=== PATIENT | male | born 1985 | race Caucasian/White ===

== ENCOUNTER 2018-04-04 18:31 | Emergency (ER) | payer SELFPAY ==
[~2018-04-04] VITALS: Ht 185.4 cm; Wt 129.3 kg
--- OUTSIDE RECORDS SUMMARY | 2018-04-04 19:00 | XMS REPORT | Continuity of Care Document ---
Author Author [facility] Address Unknown Phone Unavailable Allergies Active Description Code Type Severity Reaction Onset Reported/Identified Relationship to Patient Clinical Status Yes Penicillins Drug Allergy N/A N/A 10/17/2012 Medications There is no data. Problems Date Dx Coded Attending Type Code Diagnosis Diagnosed By 10/17/2012 300.00 ANXIETY UNSPEC 10/17/2012 521.00 UNSPECIFIED DENTAL CARIES 10/17/2012 789.07 ABDOMINAL PAIN GENERALIZED 10/17/2012 LORI VILLANUEVA DO 300.00 ANXIETY UNSPEC 10/17/2012 LORI VILLANUEVA DO 521.00 UNSPECIFIED DENTAL CARIES 10/17/2012 LORI VILLANUEVA DO 789.07 ABDOMINAL PAIN GENERALIZED 10/17/2012 ALBINO ZAMBRANO APRN 300.00 ANXIETY UNSPEC 10/17/2012 ALBINO ZAMBRANO APRN 521.00 UNSPECIFIED DENTAL CARIES 10/17/2012 ALBINO ZAMBRANO APRN 789.07 ABDOMINAL PAIN GENERALIZED 10/17/2013 ALBINO ZAMBRANO APRN 110.4 DERMATOPHYTOSIS OF FOOT 10/17/2013 ALBINO ZAMBRANO APRN 789.09 ABDOMINAL PAIN OTHER SPECIFIED SITE Procedures Code [place] [address] ROUTINE VENIPUNCTURE 10/17/2012 76189 UA W/ CULTURE IF INDICATED 10/17/2012 47102 URINE DRUG SCREEN (IN-HOUSE ) 10/17/2012 42203 CBC 10/17/2012 60148 LIPID PANEL 10/17/2012 26095 CMP 10/17/2012 [id number] GFR CALC (RESULT ONLY) 10/17/2012 34706 LIPASE 10/17/2012 71171 UA LONG DIP 10/17/2013 80515 URINE DRUG SCREEN (IN-HOUSE ) 10/17/2013 Results There is no data. Encounters ACCT No. Visit Date/Time Discharge Status Pt. Type Provider Facility Loc./Unit Complaint [id number] 10/17/2013 10:53:00 10/17/2013 23:59:59 [facility] Outpatient ALBINO ZAMBRANO APRN [id number] 11/19/2012 13:21:00 11/19/2012 23:59:59 [facility] Outpatient LORI VILLANUEVA DO [id number] 10/17/2012 10:36:00 Document Registration [id number] 03/29/2018 08:00:00 03/29/2018 23:59:59 [facility] Outpatient [facility]
--- NOTE | 2018-04-04 19:28 | ED Lower Extremity ---
General Chief Complaint: Lower Extremity Stated Complaint: R ANKLE PAIN Nursing Triage Note: PT REPORTS HAVING FELL/TWISTING FOOT IN YARD LAST SUNDAY. PT WENT TO [facility] AND THEY TOOK X-RAYS AND DIAGNOSED HIM WITH ANKLE SPRAIN AND WOULD BE HEALED IN 5 DAYS. PT STILL UNABLE TO BEAR WEIGHT ON FOOT. FOOT IS VERY SWOLLEN AND BRUISED AROUND TOES. Nursing Sepsis Screen: No Definite Risk History of Present Illness Date Seen by Provider: Apr 04, 2018 Time Seen by Provider: 19:05 Onset: last week Pain/Injury Location: right knee, right foot, right ankle Method of Injury: fell Modifying Factors: Improves With Cold Therapy, Improves With Pain Medication ( ibuprofen) The patient is a very pleasant 32-year-old male presents for evaluation of right foot and ankle pain as well as some right knee pain. He states that last Sunday he stepped onto his yard and the ground was wetter than he was expecting and he twisted his foot and ankle on the right and fell to the ground further injuring his right knee. He went to a clinic where he had x-rays of the ankle performed and then they told him he had an ankle sprain and put a Aircast splint on and give him crutches to use. We told him he would likely be healed in 5 days and to not bear any weight on the foot. He presents to the emergency department this evening because he is unable to bear any weight on the foot and he was only given an excuse from work for a few days. He states the swelling and pain are worsening and he is now noticing bruising at the base of his toes. He is concerned that there is a more serious injury because he heard a snap or pop during the fall. He has been taking ibuprofen at home with little relief. He is alert and oriented 4, calm, and appears to be in no distress. His pain is primarily over the right lateral malleolus and also on the dorsal aspect of the foot at the base of the toes. Allergies and Home Medications Allergies Coded Allergies: No Known Drug Allergies (Unverified , 04/04/18) Patient Home Medication List Home Medication List Reviewed: No Review of Systems Constitutional: no symptoms reported EENTM: no symptoms reported Respiratory: no symptoms reported Cardiovascular: no symptoms reported Musculoskeletal: joint pain (right foot, ankle, and knee) Skin: other (right foot bruising) Psychiatric/Neurological: No Symptoms Reported All Other Systems Reviewed Negative Unless Noted: Yes Past Caujifs-Nvjdov-Aorlut Hx Patient Social History Alcohol Use: Denies Use Recreational Drug Use: Yes Drug of Choice: MARIJUANA Smoking Status: Current Everyday Smoker Recent Foreign Travel: No Contact w/Someone Who Travel: No Recent Infectious Disease Expo: No Recent Hopitalizations: No Physical Abuse: No Sexual Abuse: No Seasonal Allergies Seasonal Allergies: No Past Medical History Surgeries: No Respiratory: No Cardiac: No Neurological: No Genitourinary: No Gastrointestinal: Yes Gastroesophageal Reflux Musculoskeletal: No Endocrine: No HEENT: No Cancer: No Psychosocial: Yes Anxiety, Depression Integumentary: No Blood Disorders: No Physical Exam Vital Signs Vital Signs - First Documented 04/04/18 19:00 Temp 98.0 Pulse 117 Resp 16 B/P (MAP) 133/80 (97) Pulse Ox 98 Capillary Refill : Less Than 3 Seconds Height, Weight, BMI Height: 6'1.00" Weight: 285lbs. oz. 129.119432zp; BMI Method:Stated General Appearance: WD/WN, no apparent distress HEENT: PERRL/EOMI, normal ENT inspection Neck: non-tender, full range of motion, normal inspection Cardiovascular: normal peripheral pulses, regular rate, rhythm Respiratory: chest non-tender, lungs clear, normal breath sounds, no respiratory distress Knees: right knee normal range of motion, right knee no evidence of injury, right knee bone tenderness Ankles: right ankle bone tenderness, right ankle limited range of motion, right ankle soft tissue tenderness, right ankle swelling Feet: right foot ecchymosis, right foot limited range of motion, right foot soft tissue tenderness, right foot swelling Neurologic/Tendon: normal sensation, normal motor functions, normal tendon functions 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, alert, normal mood/affect, oriented x 3 Skin: warm/dry, ecchymosis (right distal dorsal foot) Progress/Results/Core Measures Results/Orders My Orders Orders - REMA OG DO Ankle 3 View Right (04/04/18 19:10) Foot 3 View Right (04/04/18 19:10) Knee 3 View Right (04/04/18 19:10) Ice: Apply To Affected Area (04/04/18 19:10) Hydrocodone/Apap 5/325 Tablet (Lortab 5 (04/04/18 19:45) Medications Given in ED Current Medications Medications Dose Ordered Sig/Yenny Route Start Time Stop Time Status Last Admin Dose Admin Acetaminophen/ Hydrocodone Bitart 1 tab ONCE ONCE PO 04/04/18 19:45 04/04/18 19:46 DC 04/04/18 20:32 1 TAB Vital Signs/I&O 04/04/18 04/04/18 19:00 20:32 Temp 98.0 98.0 Pulse 117 Resp 16 B/P (MAP) 133/80 (97) Pulse Ox 98 Blood Pressure Mean: 97 Progress Progress Note : Progress Note @2032 - Patient updated on unremarkable imaging. He'll be placed back in the Aircast ankle splint and will use his crutches and be non-weightbearing. He is to follow-up with orthopedics in the next 2-3 days. He has been excused from work until Sunday at which time standing will be limited and he must use his crutches and will be non-weightbearing on the right. The patient expresses verbal understanding and agreement with this plan. He is going home with a prescription for [place] 06/14/24 quantity 15. Advised patient to return for new or worsening symptoms. He is stable for discharge at this time. Diagnostic Imaging Diagonstic Imaging: Xray Comments xrays of right foot, ankle, and knee are negative for acute traumatic bony pathology Departure Impression Primary Impression: Right ankle injury Additional Impressions: Right foot injury Right knee injury Disposition: HOME, SELF-CARE Condition: Stable Departure-Patient Inst. Decision time for Depature: 20:33 Patient Instructions: Knee Sprain (DC) Scripts Hydrocodone Bit/Acetaminophen (Hydrocodone/Acetaminophen 5/325mg Tablet) 1 Tab Tab 1-2 EACH PO Q6H PRN for PAIN-MODERATE MDD 10, #15 TAB 0 Refills Prov: REMA OG DO 04/04/18 Work/School Note: Work Release Form Date Seen in the Emergency Department: Apr 04, 2018 Return to Work: Apr 08, 2018 Other Restrictions Listed Below: Must use crutches. No standing more than a few minutes. REMA OG DO Apr 04, 2018 19:28
[2018-04-04] MEDS ORDERED: HYDROcodone/APAP 5 MG/325 MG (LORTAB) TAB PO ONE (19:45)
--- NOTE | 2018-04-04 20:06 | Diagnostic Imaging Report ---
INDICATION: Pain after fall with swelling. Three views were obtained. FINDINGS: The alignment is normal. The plafonds and talar dome are intact. The ankle mortise is symmetric. There is soft tissue swelling. There is no fracture or dislocation. IMPRESSION: Soft tissue swelling, otherwise unremarkable. Dictated by: Dictated on workstation # [id number]
--- NOTE | 2018-04-04 20:06 | Diagnostic Imaging Report ---
INDICATION: Pain after fall. Three views were obtained. FINDINGS: The osseous alignment is normal. There is no acute fracture or dislocation. The soft tissues are unremarkable. IMPRESSION: No acute abnormality. Dictated by: Dictated on workstation # [id number]
--- NOTE | 2018-04-04 20:08 | Diagnostic Imaging Report ---
INDICATION: Pain and swelling. Three views were obtained. FINDINGS: The alignment is normal. There is no fracture or dislocation. Soft tissue swelling. IMPRESSION: Soft tissue swelling, however, no acute fracture or dislocation. Dictated by: Dictated on workstation # [id number]
[2018-04-04] MEDS ORDERED: ACHD5005 PO (20:41)
[2018-04-04 20:52] VITALS: BP 136/80
== END 2018-04-04 20:52 | disposition home or self-care (01) ==
LOC: ER FS 18:37
DX: S99.911A Unspecified injury of right ankle, initial encounter (principal); S89.91XA Unspecified injury of right lower leg, initial encounter; K21.9 Gastro-esophageal reflux disease without esophagitis; F41.9 Anxiety disorder, unspecified; F32.9 Major depressive disorder, single episode, unspecified; F12.10 Cannabis abuse, uncomplicated; X50.1XXA Overexertion from prolonged static or awkward postures, initial encounter; W18.39XA Other fall on same level, initial encounter; Y92.007 Garden or yard of unspecified non-institutional (private) residence as the place of occurrence of the external cause
CPT/HCPCS: 73562; 73610; 73630

== ENCOUNTER 2020-05-27 20:21 | Emergency (ER) | payer SELFPAY ==
[~2020-05-27] VITALS: Ht 185.5 cm; Wt 133.4 kg
[~2020-05-27 20:21] MED LIST: ACHD5005 PO
[2020-05-27 20:25] VITALS: BP 161/83
--- NOTE | 2020-05-27 20:52 | ED GI ---
General Chief Complaint: Abdominal/GI Problems Stated Complaint: ABD PAIN,V/D Source of Information: Patient History of Present Illness Date Seen by Provider: May 27, 2020 Time Seen by Provider: 20:23 Initial Comments 35-year-old male presenting with complaints of nausea, vomiting, diarrhea and abdominal cramping this afternoon and evening. He denies feeling dizzy or lightheaded. He has had temperature up to 100.7. He took Tylenol and that resolved his temperature. He has diabetes and has not taken his Metformin for the day yet. His urine is darker in color but no burning or pain with urination. He denies seeing any blood when he vomits or in his stool. He has diffuse crampy abdominal pain. 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 He states he would have gone to Urgent care or clinic but they were already closed. He does not feel that he is sick enough to warrant ED visit but knew he needed a note for work. Allergies and Home Medications Allergies Coded Allergies: No Known Drug Allergies (Unverified , 04/04/18) Home Medications Hydrocodone Bit/Acetaminophen 1 Tab Tab, 1-2 EACH PO Q6H PRN for PAIN-MODERATE Prescribed by: LENKA HODGSON on 04/04/182040 Patient Home Medication List Home Medication List Reviewed: Yes Review of Systems Review of Systems Constitutional: No chills, No diaphoresis, No dizziness; fever (100.7 F T max.), malaise EENTM: No Symptoms Reported Respiratory: No Symptoms Reported Cardiovascular: No Symptoms Reported; Denies Lightheadedness, Denies P alpitations, Denies Syncope Gastrointestinal: See HPI; Denies Abdomen Distended; Abdominal Pain (diffuse cramping pain); Denies Blood Streaked Stools; Diarrhea (x4 episodes); Denies Difficulty Swallowing; Nausea; Denies Rectal Bleeding; Vomiting Genitourinary: Denies Burning, Denies Discharge, Denies Hematuria; Other (dark colored urine) Musculoskeletal: other (generalized aching) Skin: No rash Psychiatric/Neurological: Denies Headache, Denies Numbness, Denies Paresthesia Endocrine: Denies Increased Hunger, Denies Increased Thrist Past Nnhsfrh-Pjvyfh-Hvntyy Hx Past Med/Social Hx: Reviewed Nursing Past Med/Soc Hx, Reviewed and Corrections made Patient Social History Drug of Choice: MARIJUANA Recent Hopitalizations: No Seasonal Allergies Seasonal Allergies: No Past Medical History Surgeries: No Respiratory: No Cardiac: Yes High Cholesterol, Hypertension Neurological: No Genitourinary: No Gastrointestinal: Yes Gastroesophageal Reflux Musculoskeletal: No Diabetes, Non-Insulin dep HEENT: No Cancer: No Psychosocial: Yes Anxiety, Depression Integumentary: No Blood Disorders: No Physical Exam Vital Signs Capillary Refill : Height/Weight/BMI Height: 6'1.00" Weight: 285lbs. oz. 129.467421rp; BMI Method:Stated General Appearance: no apparent distress, obese HEENT: PERRL/EOMI, pharynx normal Neck: supple Respiratory: chest non-tender, lungs clear, normal breath sounds, no respiratory distress, no accessory muscle use Cardiovascular: normal peripheral pulses, regular rate, rhythm Gastrointestinal: soft, no pulsatile mass, abnormal bowel sounds (hyperactive); No guarding, No rebound; tenderness (mild diffuse, but worse on lateral sides of abdomen) Rectal: deferred Extremities: normal range of motion, normal capillary refill Back: no CVA tenderness Neurologic/Psychiatric: alert, oriented x 3 Skin: normal color, warm/dry Images 1 - diffuse mild abdominal tenderness to palpation worse on lateral areas of each side. hyperactive bowel sounds. no guarding or rebound Progress/Results/Core Measures Results/Orders Lab Results Laboratory Tests Test 05/27/20 20:49 Range/Units Glucometer 87 70-110 MG/DL My Orders Orders - FRED LUX MD Rx-Ondansetron Po (Rx-Zofran Po) (05/27/20 21:00) Accucheck Stat ONCE (05/27/20 20:47) Medications Given in ED Current Medications Medications Dose Ordered Sig/Yenny Route Start Time Stop Time Status Last Admin Dose Admin Ondansetron HCl 4 mg Q6H PRN PO 05/27/20 21:00 05/27/20 20:58 4 MG Progress Progress Note : Progress Note Reviewed with patient that without doing further testing only acute offer was the work note and Zofran to try and help with his nausea or vomiting. Encourage fluids. Patient stated he did not want to bring up a large bill and felt like his symptoms were not that bad. He preferred to try the Zofran and fluids. He stated that if things got worse or he had more problems that he would return or seek medical care through the clinic or urgent care. Counseled on follow-up and return precautions. An Accu-Chek was done and his sugar was 87. As he had not had anything to eat that was good for a fasting sugar for him. With his nausea vomiting will send a 4 pack of Zofran with the patient to help but if he needed more than that for it would be best to have him reevaluated. Departure Impression Primary Impression: Nausea vomiting and diarrhea Additional Impression: Abdominal cramping Disposition: HOME, SELF-CARE Condition: Stable Departure-Patient Inst. Decision time for Depature: 20:50 Referrals: DEANGELO MISTRY APRN (PCP) Primary Care Physician NO,LOCAL PHYSICIAN (Family) Primary Care Physician Patient Instructions: Nausea and Vomiting, Adult ED, Diarrhea, Adult ED Add. Discharge Instructions: Stay well hydrated and use the dissolving zofran for nausea. Check back with clinic if not improving or if you have worsening symptoms see the clinic or return for further evaluation All discharge instructions reviewed with patient and/or family. Voiced understanding. Work/School Note: Work Release Form Date Seen in the Emergency Department: May 27, 2020 Return to Work: May 29, 2020 Restrictions: Return-No Vomiting(24hrs) FRED LUX MD May 27, 2020 20:52
[2020-05-27] MEDS ORDERED: RX-ONDANSETRON 4 MG ODT (ZOFRAN) PPK #4 PO PRN (21:00)
== END 2020-05-27 21:00 | disposition home or self-care (01) ==
LOC: EDUNIT# 20:21 → ER FS 20:22
DX: R11.2 Nausea with vomiting, unspecified (principal); R19.7 Diarrhea, unspecified; R10.84 Generalized abdominal pain; E66.9 Obesity, unspecified; E11.9 Type 2 diabetes mellitus without complications; Z68.45 Body mass index [BMI] 70 or greater, adult; Z79.84 Long term (current) use of oral hypoglycemic drugs
CPT/HCPCS: 82962

== ENCOUNTER 2020-12-29 06:37 | Emergency (ER) | payer SELFPAY ==
[~2020-12-29] VITALS: Ht 182.8 cm; Wt 129.2 kg
--- NOTE | 2020-12-29 07:07 | ED Chest Pain ---
General Chief Complaint: Chest Pain Stated Complaint: CHEST PAIN/SOA Nursing Triage Note: Pt ambulatory into ER this AM with complaint of chest pain that comes and goes since last night. Pt states that it feels like hes been shot in the back, but also that his spine is being ripped out. Pt states that when the pain isn't too bad its aa 5/10 and when at its worse its a 7/10. Pt states that he feels a little SOA with this. Vitals are stable, IV placed, and Provider notified. PT denies taking anything for pain at home. Denies N/V with the pain. Source: patient Exam Limitations: no limitations (CECI PHIPPS DO) History of Present Illness Date Seen by Provider: Dec 29, 2020 Time Seen by Provider: 06:50 Initial Comments Patient is a 35-year-old male with history of Graves' disease, panic disorder who presents with chest pressure intermittent since last night. Patient states he feels as though he had a typical panic attack last night, however his symptoms persisted this morning and his sensation of someone standing on top of his chest. Symptoms are nonexertional and occur at rest and last 5 to 10 minutes at a time. Pain are nonradiating. Although, he occasionally he reports burning pain of his left posterior thoracic region not associated with the chest pain. 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 Patient has smoker's chronic smoker's cough is in the process of quitting. No leg pain swelling. No fever chills. No other acute symptoms or complaints. Patient is compliant with his medications. Timing/Duration: intermittent, 12-24 hours Severity/Quality: other Location: other Radiation: other Activities at Onset: other Prior CP/Workup: other Modifying Factors: improves with other ASA po K[employer]ITTED GOODS SHAPER: No NTG SL K[employer]ITTED [employer] SHAPER: No Associated Symptoms: shortness of breath (CECI PHIPPS DO) Allergies and Home Medications Allergies Coded Allergies: No Known Drug Allergies (Unverified , 04/04/18) Patient Home Medication List Home Medication List Reviewed: Yes (CECI PHIPPS DO) Hydrocodone Bit/Acetaminophen (Lortab 5 Mg Tablet) 1 Tab Tab, 1-2 EACH PO Q6H PRN for PAIN-MODERATE Prescribed by: LENKA HODGSON on 04/04/182040 Review of Systems Review of Systems Constitutional: see HPI EENTM: See HPI Respiratory: See HPI Cardiovascular: See HPI Gastrointestinal: See HPI Genitourinary: See HPI Musculoskeletal: see HPI Skin: see HPI Psychiatric/Neurological: See HPI Endocrine: See HPI Hematologic/Lymphatic: See HPI (CECI PHIPPS DO) All Other Systems Reviewed Negative Unless Noted: Yes (CECI PHIPPS DO) Past Rwzcixy-Aujbpm-Jqbfqg Hx Patient Social History Tobacco Use?: Yes Tobacco type used: Cigarettes Smoking Status: Current Everyday Smoker Use of E-Cig and/or Vaping dev: No Substance use?: Yes Substance type: Marijuana Substance frequency: Couple times a week Alcohol Use?: No Pt feels they are or have been: No (CECI PHIPPS DO) Immunizations Up To Date Influenza Vaccine Up-to-Date: Yes; Up-to-Date Second COVID19 Vaccination Albin: May 02 COVID19 Vaccine Income Tax Preparer: Moderna (CECI PHIPPS DO) Seasonal Allergies Seasonal Allergies: No (CECI PHIPPS DO) Past Medical History Surgeries: No Respiratory: No Cardiac: Yes High Cholesterol, Hypertension Neurological: No Genitourinary: No Gastrointestinal: Yes Gastroesophageal Reflux Musculoskeletal: No Diabetes, Non-Insulin dep HEENT: No Cancer: No Psychosocial: Yes Anxiety, Depression Integumentary: No Blood Disorders: No (CECI PHIPPS DO) Physical Exam Vital Signs Vital Signs - First Documented 12/29/20 06:42 Temp 36.4 Pulse 74 Resp 24 B/P (MAP) 127/80 (96) Pulse Ox 96 O2 Delivery Room Air (FRED LUX MD) Vital Signs Capillary Refill : Less Than 3 Seconds (CECI PHIPPS DO) Height, Weight, BMI Height: 6'1.00" Weight: 285lbs. oz. 129.757738vv; 38.00 BMI Method:Stated General Appearance: No Apparent Distress, Anxious HEENT: PERRL/EOMI, TMs Normal, Normal ENT Inspection Neck: Normal Inspection, Non Tender, Supple Respiratory: Chest Non Tender, Lungs Clear, Normal Breath Sounds, No Accessory Muscle Use Cardiovascular: Regular Rate, Rhythm, No Edema, Normal Peripheral Pulses Gastrointestinal: Non Tender, Soft Extremity: Non Tender Neurologic/Psychiatric: Alert, Oriented x3, heart surgeon II-XII Norm as Tested (CECI PHIPPS DO) Focused Exam Sepsis Stage: Ruled Out (CECI PHIPPS DO) Progress/Results/Core Measures Results/Orders Lab Results Laboratory Tests Test 12/29/20 06:48 Range/Units White Blood Count 9.9 4.3-11.0 10^3/uL Red Blood Count 4.94 4.30-5.52 10^6/uL Hemoglobin 15.3 13.3-17.7 g/dL Hematocrit 46 40-54 % Mean Corpuscular Volume 93 80-99 fL Mean Corpuscular Hemoglobin 31 25-34 pg Mean Corpuscular Hemoglobin Concent 33 32-36 g/dL Red Cell Distribution Width 13.6 10.0-14.5 % Platelet Count 212 130-400 10^3/uL Mean Platelet Volume 11.0 9.0-12.2 fL Immature Granulocyte % (Auto) 0 % Neutrophils (%) (Auto) 68 42-75 % Lymphocytes (%) (Auto) 20 12-44 % Monocytes (%) (Auto) 5 0-12 % Eosinophils (%) (Auto) 6 0-10 % Basophils (%) (Auto) 1 0-10 % Neutrophils # (Auto) 6.8 1.8-7.8 X 10^3 Lymphocytes # (Auto) 2.0 1.0-4.0 X 10^3 Monocytes # (Auto) 0.5 0.0-1.0 X 10^3 Eosinophils # (Auto) 0.6 H 0.0-0.3 10^3/uL Basophils # (Auto) 0.1 0.0-0.1 10^3/uL Immature Granulocyte # (Auto) 0.0 0.0-0.1 10^3/uL Sodium Level 139 135-145 MMOL/L Potassium Level 4.3 3.6-5.0 MMOL/L Chloride Level 104 98-107 MMOL/L Carbon Dioxide Level 24 21-32 MMOL/L Anion Gap 11 5-14 MMOL/L Blood Urea Nitrogen 16 7-18 MG/DL Creatinine 1.10 0.60-1.30 MG/DL Estimat Glomerular Filtration Rate 76 BUN/Creatinine Ratio 15 Glucose Level 162 H 70-105 MG/DL Calcium Level 9.6 8.5-10.1 MG/DL Corrected Calcium 8.5-10.1 MG/DL Total Bilirubin 0.2 0.1-1.0 MG/DL Aspartate Amino Transf (AST/SGOT) 13 5-34 U/L Alanine Aminotransferase (ALT/SGPT) 12 0-55 U/L Alkaline Phosphatase 90 40-136 U/L Troponin I < 0.30 <0.30 NG/ML Total Protein 7.4 6.4-8.2 GM/DL Albumin 4.6 H 3.2-4.5 GM/DL (FRED LUX MD) My Orders Orders - FRED LUX MD Ekg Tracing (12/29/20 07:55) (FRED LUX MD) Vital Signs/I&O 12/29/20 12/29/20 06:42 08:13 Temp 36.4 Pulse 74 50 Resp 24 16 B/P (MAP) 127/80 (96) 120/78 Pulse Ox 96 96 O2 Delivery Room Air Room Air (FRED LUX MD) Blood Pressure Mean: 96 Progress Progress Note #1: Time: 07:39 Progress Note I assumed care of patient from Dr. Phipps at shift change. Patient was waiting on labs but felt that his pressure in chest might be more related to anxiety and stress related to his job as emergency department manager at [employer]. CXR did not show any acute process. ECG was sinus rhythm without ectopy or ST elevation. Labs all appeared stable without elevation of troponin after intermittent chest pressure overnight. His glucose was 176. Will check with patient about his symptoms and determine disposition. Progress Note #2: Progress Note When discussing results with the patient he mentioned that he has been having intermittent sharp pains to mid back on the left side. When he has the pain it is sharp in nature and feels like he is being cut in half. He reports it can last up to 1-2 hours at a time and has no specific trigger or alleviating factor. He has thought it might be his kidney, heart, pinched nerve in his back, or related to his thyroid disease. He does have family history in several family members with cardiac disease and diabetes so he was concerned because they started having trouble around the age of 35 and he is now 35 as well. He has no risk factors for PE as he has no recent surgery, prolonged travel, family hx of clots, personal hx of clots. No leg swelling or calf pain. Advised that if he continues to have pain that at least cardiology consult or stress test with his family history would be helpful but he may also need a CT scan of chest to check for PE or Aorta issue. Could be kidney issue but he states they told him his urine was clear on Sunday after having pain all week the week previous up through Sunday before having UA and blood work on Sunday. Pt voiced understanding and was relieved his tests did not show a heart attack but understands it does not mean he does not have narrowing of arteries or plaque build up in arteries as that would require a stress test or heart cath to help show that. Sent with work note for today as he missed work and counseled on follow up and return precautions (FRED LUX MD) Initial ECG Impression Date: Dec 29, 2020 Initial ECG Impression Time: 06:38 Initial ECG Rate: 71 Initial ECG Rhythm: Normal Sinus Initial ECG Comparisson: No Previous ECG Available Comment Normal sinus rhythm with a heart rate of 71 bpm. VT interval [address] elevation. QT interval 372 ms with a QTc interval 405 ms. There is no previous tracing available for comparison. (FRED LUX MD) Diagnostic Imaging Diagonstic Imaging: Xray Plain Films/CT/US/NM/MRI: chest Comments [facility]. [place], [place] NAME: ELZBIETA KING [facility] REC#: [id number] PT STATUS: REG ER : 1985 PHYSICIAN: CECI PHIPPS DO ADMIT DATE: 12/29/20/ER FS Draft Date of Exam:12/29/20 CHEST 1 VIEW AP/PA ONLY Indication: Chest pain. FINDINGS: Portable exam. The lungs are well-aerated and clear. The heart is not enlarged. No pulmonary edema. No pneumothorax or pleural effusion. No bony abnormalities. IMPRESSION: Negative portable chest. Dictated on workstation # [id number] Dict: 12/29/20 0702 Trans: 12/29/20 0705 [facility] [id number] Interpreted by: SABAS BENITEZ MD Electronically signed by: Reviewed: Reviewed by Me (FRED LUX MD) Transfer of Care Time: 07:12 Care transferred to: Dr. Lux. (CECI PHIPPS DO) Departure Communication (Admissions) Chest x-ray: No acute cardiopulmonary disease Atypical chest pain with history of anxiety and panic disorder. Work-up in progress. Care transition to Dr. Lux at 07:10 (CECI PHIPPS DO) Impression Primary Impression: Chest pain Qualified Codes: R07.9 - Chest pain, unspecified Additional Impressions: Mid back pain on left side Family history of heart disease Disposition: HOME, SELF-CARE Condition: Stable Departure-Patient Inst. Decision time for Depature: 08:10 (FRED LUX MD) Referrals: DEANGELO MISTRY APRN (PCP) Primary Care Physician NO,LOCAL PHYSICIAN (Family) Primary Care Physician [facility] Patient Instructions: Upper Back Pain ED, Chest Pain, Adult ED Add. Discharge Instructions: Your blood work, Electrocardiogram and chest xray all had looked ok today without signs of a heart attack. If you continue to have pains or have worsening symptoms then you could certainly return for further evaluation. Check with your provider about cardiology consult or stress test based on your family history of heart disease and you having diabetes and thyroid disease. All discharge instructions reviewed with patient and/or family. Voiced understanding. Work/School Note: Work Release Form Date Seen in the Emergency Department: Dec 29, 2020 Return to Work: Dec 30, 2020 Restrictions: No Restrictions CECI PHIPPS DO Dec 29, 2020 07:07 FRED LUX MD Dec 29, 2020 07:42
[2020-12-29 07:20] LABS: HEMATOCRIT 46 % (40-54); HEMOGLOBIN 15.3 g/dL (13.3-17.7); MEAN CORPUSCULAR HEMOGLOBIN 31 pg (25-34); MEAN CORPUSCULAR HGB CONC 33 g/dL (32-36); MEAN CORPUSCULAR VOLUME 93 fL (80-99); PLATELET COUNT 212 10^3/uL (130-400); WHITE BLOOD COUNT 9.9 10^3/uL (4.3-11.0)
[2020-12-29 07:21] LABS: BASOPHILS # (AUTO) 0.1 10^3/uL (0.0-0.1); BASOPHILS % (AUTO) 1 % (0-10); EOSINOPHILS # (AUTO) 0.6 10^3/uL (0.0-0.3); EOSINOPHILS % (AUTO) 6 % (0-10); LYMPHOCYTES % (AUTO) 20 % (12-44); MONOCYTES # (AUTO) 0.5 X 10^3 (0.0-1.0); MONOCYTES % (AUTO) 5 % (0-12); NEUTROPHILS # (AUTO) 6.8 X 10^3 (1.8-7.8); NEUTROPHILS % (AUTO) 68 % (42-75)
[2020-12-29 07:34] LABS: ALANINE AMINOTRANSFERASE 12 U/L (0-55); ALBUMIN 4.6 GM/DL (3.2-4.5); ALKALINE PHOSPHATASE 90 U/L (40-136); BILIRUBIN,TOTAL 0.2 MG/DL (0.1-1.0); BUN/CREATININE RATIO 15; CALCIUM 9.6 MG/DL (8.5-10.1); CARBON DIOXIDE 24 MMOL/L (21-32); CHLORIDE 104 MMOL/L (98-107); GFR ESTIMATED 76; GLUCOSE 162 MG/DL (70-105); POTASSIUM 4.3 MMOL/L (3.6-5.0); SODIUM 139 MMOL/L (135-145); TOTAL PROTEIN 7.4 GM/DL (6.4-8.2)
[2020-12-29 08:13] VITALS: BP 120/78
== END 2020-12-29 08:15 | disposition home or self-care (01) ==
LOC: EDUNIT# 06:37 → ER FS 06:40
DX: R07.9 Chest pain, unspecified (principal); M54.6 Pain in thoracic spine; I10 Essential (primary) hypertension; E11.9 Type 2 diabetes mellitus without complications; E05.00 Thyrotoxicosis with diffuse goiter without thyrotoxic crisis or storm; F17.210 Nicotine dependence, cigarettes, uncomplicated; Z82.49 Family history of ischemic heart disease and other diseases of the circulatory system
CPT/HCPCS: 36415; 71045; 80053; 84484; 85025; 93005

== ENCOUNTER 2021-08-03 16:42 | Emergency (ER) | payer OTHER ==
[~2021-08-03] VITALS: Ht 180 cm; Wt 136.5 kg
[2021-08-03 17:00] LABS: BILIRUBIN,URINE NEGATIVE (NEGATIVE); CLARITY,URINE CLEAR; COLOR,URINE YELLOW; GLUCOSE, URINE (UA) NEGATIVE (NEGATIVE); KETONES,URINE NEGATIVE (NEGATIVE); LEUKOCYTE ESTERASE ,URINE NEGATIVE (NEGATIVE); NITRITE,URINE NEGATIVE (NEGATIVE); PROTEIN,URINE NEGATIVE (NEGATIVE)
[2021-08-03 17:05] LABS: BACTERIA,URINE NEGATIVE /HPF; SQUAMOUS EPITHELIAL CELL,UR RARE /HPF; WBC,URINE RARE /HPF
[2021-08-03 17:10] LABS: AMPHETAMINE SCREEN, URINE NEGATIVE (NEGATIVE); BARBITURATE SCREEN URINE NEGATIVE (NEGATIVE); BENZODIAZEPINES SCREEN URINE POSITIVE (NEGATIVE); CANNABINOID SCREEN, URINE POSITIVE (NEGATIVE); COCAINE SCREEN URINE NEGATIVE (NEGATIVE); METHADONE STAT NEGATIVE (NEGATIVE); OPIATE SCREEN URINE NEGATIVE (NEGATIVE); OXYCODONE STAT NEGATIVE (NEGATIVE); PROPOXYPHENE STAT NEGATIVE (NEGATIVE); TRICYCLIC ANTIDEPRESSANTS SCRE NEGATIVE (NEGATIVE)
--- NOTE | 2021-08-03 17:17 | ED Psychosocial ---
General Chief Complaint: Psych/Social Disorder Stated Complaint: MENTAL HEALTH ISSUES Nursing Triage Note: Patient has ambulated to ER with cc of "not feeling myself". He seems rather vague, but reports that his job has been causing a lot of stress. He reports wanting to talk to someone. He states that he is wanting to get some time off of work. He did reports that he felt stressed this afternoon and he did go home and vomit. He reports feeling this way for the last 2 weeks. Source: patient History of Present Illness Date Seen by Provider: Aug 03, 2021 Time Seen by Provider: 16:44 Initial Comments 36-year-old male presenting with complaints of disassociation and not feeling like himself. He feels like the stress from his work is making him "crazy". He had a panic attack today and ended up vomiting after that. He had tried to go to [facility] to speak to a therapist about these issues and see if maybe they could help him get some time off work to try and figure things out. However when he checked and they told him he had to come here to the emergency department. He denies being suicidal currently he states that he is worried that it would get so that if he does not get some help. He denies taking anything or trying to hurt himself prior to arrival. Severity: moderate Associated Symptoms: anxiety, impaired concentration, other (Dissociation and anxiety) Allergies and Home Medications Allergies Coded Allergies: No Known Drug Allergies (Unverified , 04/04/18) Patient Home Medication List Home Medication List Reviewed: Yes Hydrocodone Bit/Acetaminophen (Lortab 5 Mg Tablet) 1 Tab Tab, 1-2 EACH PO Q6H PRN for PAIN-MODERATE Prescribed by: LENKA HODGSON on 04/04/182040 Review of Systems Constitutional: No chills, No fever EENTM: no symptoms reported Respiratory: no symptoms reported Cardiovascular: no symptoms reported Gastrointestinal: no symptoms reported Genitourinary: no symptoms reported Musculoskeletal: no symptoms reported Skin: no symptoms reported Psychiatric/Neurological: Anxiety, Depressed, Emotional Problems Past Jbqhbps-Hqczon-Yybgfo Hx Patient Social History Tobacco Use?: Yes Tobacco type used: Cigarettes Use of E-Cig and/or Vaping dev: No Substance use?: Yes Substance type: Marijuana Alcohol Use?: No Immunizations Up To Date Second COVID19 Vaccination Albin: May 02 Seasonal Allergies Seasonal Allergies: No Past Medical History Surgeries: No Respiratory: No Cardiac: Yes High Cholesterol, Hypertension Neurological: No Genitourinary: No Gastrointestinal: Yes Gastroesophageal Reflux Musculoskeletal: No Diabetes, Non-Insulin dep HEENT: No Cancer: No Psychosocial: Yes Anxiety, Depression Integumentary: No Blood Disorders: No Physical Exam Vital Signs - First Documented 08/03/21 17:00 Temp 36.7 Pulse 107 Resp 16 B/P (MAP) 148/99 (115) Pulse Ox 98 Capillary Refill : Height, Weight, BMI Height: 6'1.00" Weight: 285lbs. oz. 129.382990wp; 42.00 BMI Method:Stated General Appearance: WD/WN, obese HEENT: PERRL/EOMI, pharynx normal Neck: non-tender, full range of motion, supple, normal inspection Respiratory: chest non-tender, lungs clear, normal breath sounds, no respiratory distress, no accessory muscle use Cardiovascular: normal peripheral pulses, regular rate, rhythm Gastrointestinal: normal bowel sounds, non tender, soft, no pulsatile mass Extremities: normal range of motion, non-tender, normal capillary refill Neurologic/Psychiatric: carrier operator II-XII nml as tested, alert, oriented x 3, depressed affect Appearance/Memory: appropriate appearance, neat Behavior/Eye Contact: cooperative, good eye contact, normal speech Thoughts/Hallucinations: normal thought pattern Skin: normal color, warm/dry Progress/Results/Core Measures Results/Orders Lab Results Laboratory Tests Test 08/03/21 16:48 08/03/21 17:05 08/03/21 17:20 Range/Units Urine Color YELLOW Urine Clarity CLEAR Urine pH 7.0 5-9 Urine Specific [place] 1.015 L 1.016-1.022 Urine Protein NEGATIVE NEGATIVE Urine Glucose (UA) NEGATIVE NEGATIVE Urine Ketones NEGATIVE NEGATIVE Urine Nitrite NEGATIVE NEGATIVE Urine Bilirubin NEGATIVE NEGATIVE Urine Urobilinogen 0.2 < = 1.0 MG/DL Urine Leukocyte Esterase NEGATIVE NEGATIVE Urine RBC (Auto) NEGATIVE NEGATIVE Urine RBC NONE /HPF Urine WBC RARE /HPF Urine Squamous Epithelial Cells RARE /HPF Urine Crystals NONE /LPF Urine Bacteria NEGATIVE /HPF Urine Casts NONE /LPF Urine Mucus NEGATIVE /LPF Urine Culture Indicated NO Urine Opiates Screen NEGATIVE NEGATIVE Urine Oxycodone Screen NEGATIVE NEGATIVE Urine Methadone Screen NEGATIVE NEGATIVE Urine Propoxyphene Screen NEGATIVE NEGATIVE Urine Barbiturates Screen NEGATIVE NEGATIVE Ur Tricyclic Antidepressants Screen NEGATIVE NEGATIVE Urine Phencyclidine Screen NEGATIVE NEGATIVE Urine Amphetamines Screen NEGATIVE NEGATIVE Urine Methamphetamines Screen NEGATIVE NEGATIVE Urine Benzodiazepines Screen POSITIVE H NEGATIVE Urine Cocaine Screen NEGATIVE NEGATIVE Urine Cannabinoids Screen POSITIVE H NEGATIVE SARS-CoV-2 RNA (RT-PCR) Not Detected Not Detecte White Blood Count 10.9 4.3-11.0 10^3/uL Red Blood Count 4.56 4.30-5.52 10^6/uL Hemoglobin 14.1 13.3-17.7 g/dL Hematocrit 42 40-54 % Mean Corpuscular Volume 91 80-99 fL Mean Corpuscular Hemoglobin 31 25-34 pg Mean Corpuscular Hemoglobin Concent 34 32-36 g/dL Red Cell Distribution Width 13.5 10.0-14.5 % Platelet Count 208 130-400 10^3/uL Mean Platelet Volume 10.9 9.0-12.2 fL Immature Granulocyte % (Auto) 1 % Neutrophils (%) (Auto) 59 42-75 % Lymphocytes (%) (Auto) 28 12-44 % Monocytes (%) (Auto) 5 0-12 % Eosinophils (%) (Auto) 7 0-10 % Basophils (%) (Auto) 1 0-10 % Neutrophils # (Auto) 6.4 1.8-7.8 10^3/uL Lymphocytes # (Auto) 3.0 1.0-4.0 10^3/uL Monocytes # (Auto) 0.5 0.0-1.0 10^3/uL Eosinophils # (Auto) 0.8 H 0.0-0.3 10^3/uL Basophils # (Auto) 0.1 0.0-0.1 10^3/uL Immature Granulocyte # (Auto) 0.1 0.0-0.1 10^3/uL Sodium Level 141 135-145 MMOL/L Potassium Level 4.1 3.6-5.0 MMOL/L Chloride Level 106 98-107 MMOL/L Carbon Dioxide Level 24 21-32 MMOL/L Anion Gap 11 5-14 MMOL/L Blood Urea Nitrogen 11 7-18 MG/DL Creatinine 0.99 0.60-1.30 MG/DL Estimat Glomerular Filtration Rate 101 BUN/Creatinine Ratio 11 Glucose Level 100 70-105 MG/DL Calcium Level 9.1 8.5-10.1 MG/DL Corrected Calcium 8.5-10.1 MG/DL Total Bilirubin 0.3 0.1-1.0 MG/DL Aspartate Amino Transf (AST/SGOT) 11 5-34 U/L Alanine Aminotransferase (ALT/SGPT) 10 0-55 U/L Alkaline Phosphatase 74 40-136 U/L Total Protein 7.2 6.4-8.2 GM/DL Albumin 4.7 H 3.2-4.5 GM/DL Salicylates Level < 0.3 L 5.0-20.0 MG/DL Acetaminophen Level < 10 L 10-30 UG/ML Serum Alcohol < 10 <10 MG/DL My Orders Orders - FRED LUX MD Ua Culture If Indicated (08/03/21 16:47) Cbc With Automated Diff (08/03/21 16:47) Comprehensive Metabolic Panel (08/03/21 16:47) Alcohol (08/03/21 16:47) Drug Screen Stat (Urine) (08/03/21 16:47) Acetaminophen (08/03/21 16:47) Salicylate (08/03/21 16:47) Ekg Tracing (08/03/21 16:47) Bh Status Checks/Observation Q15M (08/03/21 16:47) Covid 19 Inhouse Test (08/03/21 16:56) Vital Signs/I&O 08/03/21 17:00 Temp 36.7 Pulse 107 Resp 16 B/P (MAP) 148/99 (115) Pulse Ox 98 Blood Pressure Mean: 115 Progress Progress Note #1: Progress Note Obtain basic labs and electrocardiogram to medically screen the patient. Provided these are all stable and he is medically clear will have [facility] speak with him about his disassociation and anxiety and stress since [facility] sent him here rather than trying to help him at the clinic this afternoon. COVID swab just in case he did need to be admitted Progress Note #2: Progress Note Patient is medically clear and stable for evaluation by mental health. Labs are all stable without acute significant abnormality. COVID swab was negative Give a work note to be off until Sunday to allow him to make it to the appointment to see mental health. This also might give him some time to destress and help him find a way to vent about work. Initial ECG Impression Date: Aug 03, 2021 Initial ECG Impression Time: 17:03 Initial ECG Rate: 93 Initial ECG Rhythm: Normal Sinus Initial ECG Comparisson: Unchanged Comment Sinus rhythm with a heart rate of 93 bpm. [place] interval 160 ms. Left axis deviation. Low QRS voltage in precordial leads. QT interval 344 ms with a QTc interval 394 ms. There is no acute ST elevation. Overall appears similar to prior tracings other than he has artifact on today's tracing. Departure Impression Primary Impression: Disassociation Additional Impression: Anxiety Disposition: 01 HOME, SELF-CARE Condition: Stable Departure-Patient Inst. Decision time for Depature: 19:30 Referrals: LIGIA CRUZ APRN (PCP/Family) Primary Care Physician Patient Instructions: Anxiety, Adult ED, Tips to Help You [place] in Uncertain Times Add. Discharge Instructions: Follow the safety plan as set up by mental health [facility]. All discharge instructions reviewed with patient and/or family. Voiced understanding. Work/School Note: Work Release Form Date Seen in the Emergency Department: Aug 03, 2021 Return to Work: Aug 08, 2021 Restrictions: No Restrictions FRED LUX MD Aug 03, 2021 17:17
[2021-08-03 17:23] LABS: BASOPHILS # (AUTO) 0.1 10^3/uL (0.0-0.1); BASOPHILS % (AUTO) 1 % (0-10); EOSINOPHILS # (AUTO) 0.8 10^3/uL (0.0-0.3); EOSINOPHILS % (AUTO) 7 % (0-10); HEMATOCRIT 42 % (40-54); HEMOGLOBIN 14.1 g/dL (13.3-17.7); LYMPHOCYTES % (AUTO) 28 % (12-44); MEAN CORPUSCULAR HEMOGLOBIN 31 pg (25-34); MEAN CORPUSCULAR HGB CONC 34 g/dL (32-36); MEAN CORPUSCULAR VOLUME 91 fL (80-99); MEAN PLATELET VOLUME 10.9 fL (9.0-12.2); MONOCYTES # (AUTO) 0.5 10^3/uL (0.0-1.0); MONOCYTES % (AUTO) 5 % (0-12); NEUTROPHILS # (AUTO) 6.4 10^3/uL (1.8-7.8); NEUTROPHILS % (AUTO) 59 % (42-75); PLATELET COUNT 208 10^3/uL (130-400); WHITE BLOOD COUNT 10.9 10^3/uL (4.3-11.0)
[2021-08-03 17:49] LABS: BUN/CREATININE RATIO 11; CARBON DIOXIDE 24 MMOL/L (21-32); CHLORIDE 106 MMOL/L (98-107); CREATININE SERUM 0.99 MG/DL (0.60-1.30); GFR ESTIMATED 101; POTASSIUM 4.1 MMOL/L (3.6-5.0); SODIUM 141 MMOL/L (135-145)
[2021-08-03 17:50] LABS: ACETAMINOPHEN < 10 UG/ML (10-30); ALANINE AMINOTRANSFERASE 10 U/L (0-55); ALBUMIN 4.7 GM/DL (3.2-4.5); ALKALINE PHOSPHATASE 74 U/L (40-136); BILIRUBIN,TOTAL 0.3 MG/DL (0.1-1.0); CALCIUM 9.1 MG/DL (8.5-10.1); GLUCOSE 100 MG/DL (70-105); SALICYLATE < 0.3 MG/DL (5.0-20.0); TOTAL PROTEIN 7.2 GM/DL (6.4-8.2)
[2021-08-03 20:15] VITALS: BP 142/89
== END 2021-08-03 20:15 | disposition home or self-care (01) ==
LOC: EDUNIT# 16:42 → ER FS 16:43
DX: F44.9 Dissociative and conversion disorder, unspecified (principal); F41.0 Panic disorder [episodic paroxysmal anxiety]; F17.210 Nicotine dependence, cigarettes, uncomplicated; Z20.822 Contact with and (suspected) exposure to COVID-19
CPT/HCPCS: 36415; 80053; 80306; 80320; 80329; 81000; 85025; 87636; 93005

== ENCOUNTER 2021-09-19 06:44 | Emergency (ER) | payer OTHER ==
[~2021-09-19] VITALS: Ht 183 cm; Wt 138.0 kg
--- NOTE | 2021-09-19 07:05 | Diagnostic Imaging Report ---
EXAMINATION: Chest 2 view HISTORY: sob COMPARISON: 12/29/2020 FINDINGS: Heart size and pulmonary vasculature are normal. The lungs are clear without consolidation, pleural effusion, or pneumothorax. The osseous structures are intact. IMPRESSION: 1. No acute radiographic abnormality in the chest. Dictated by: Dictated on workstation # [id number]
[2021-09-19 07:23] LABS: BASOPHILS # (AUTO) 0.1 10^3/uL (0.0-0.1); BASOPHILS % (AUTO) 1 % (0-10); EOSINOPHILS # (AUTO) 0.5 10^3/uL (0.0-0.3); EOSINOPHILS % (AUTO) 5 % (0-10); HEMATOCRIT 41 % (40-54); HEMOGLOBIN 13.8 g/dL (13.3-17.7); LYMPHOCYTES # (AUTO) 1.6 10^3/uL (1.0-4.0); LYMPHOCYTES % (AUTO) 18 % (12-44); MEAN CORPUSCULAR HEMOGLOBIN 31 pg (25-34); MEAN CORPUSCULAR HGB CONC 33 g/dL (32-36); MEAN CORPUSCULAR VOLUME 93 fL (80-99); MEAN PLATELET VOLUME 11.3 fL (9.0-12.2); MONOCYTES # (AUTO) 0.4 10^3/uL (0.0-1.0); MONOCYTES % (AUTO) 5 % (0-12); NEUTROPHILS # (AUTO) 6.2 10^3/uL (1.8-7.8); NEUTROPHILS % (AUTO) 71 % (42-75); PLATELET COUNT 170 10^3/uL (130-400); WHITE BLOOD COUNT 8.7 10^3/uL (4.3-11.0)
[2021-09-19] MEDS ORDERED: KETOROLAC 30 MG/ML VIAL IVP STA (07:24)
[2021-09-19] MEDS ORDERED: PANTOPRAZOLE 40 MG (PROTONIX) VIAL IV STA (07:24)
[2021-09-19] MEDS ORDERED: ONDANSETRON 4 MG/2 ML (SDV) Z0FRAN IVP STA (07:24)
[2021-09-19] MEDS ORDERED: NS IV 1000 ML 1,000 ML IV STA (07:24)
--- NOTE | 2021-09-19 07:31 | ED General ---
General Chief Complaint: Respiratory Problems Stated Complaint: SOB, BODY ACHES Nursing Triage Note: generalized weakness/fatigue, nausea, vomiting, and loose stools going for multiple days. Source of Information: Patient, Old Records History of Present Illness Date Seen by Provider: Sep 19, 2021 Time Seen by Provider: 07:00 Initial Comments 36 yo male presenting with complaints of weakness, fatigue, nausea, vomiting, diarrhea, muscle tightness, shortness of breath, non-productive cough since SundaySeptember 16. He reports that this morning he felt weak and had trouble getting out of the shower. He has a history of Graves disease and had a thyroidectomy. He recently had an increase in his Levothyroxine from 175 mcg to 200 mcg. He reports that the way he is feeling now is similar to when he was first diagnosed with Graves and he is wondering if it is due to his thyroid levels not being balanced. He also has a history of diabetes and is concerned that maybe his diabetes may be playing a role. He thought that he may have been overheated on Sunday and that that started some of his symptoms. 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 Timing/Duration: 3-4 Days Severity: Moderate Associated Systoms: Chest Pain (musculoskeletal chest pain), Cough (non productive); No Diaphoresis, No Fever/Chills, No Headaches; Loss of Appetite, Malaise, Nausea/Vomiting; No Rash, No Seizure; Shortness of Air; No Syncope; Weakness Allergies and Home Medications Allergies Coded Allergies: No Known Drug Allergies (Unverified , 04/04/18) Patient Home Medication List Home Medication List Reviewed: Yes Hydrocodone Bit/Acetaminophen (Lortab 5 Mg Tablet) 1 Tab Tab, 1-2 EACH PO Q6H PRN for PAIN-MODERATE Prescribed by: LENKA HODGSON on 04/04/182040 Ondansetron (Ondansetron Odt) 4 Mg Tab.rapdis, 4 MG PO Q6H PRN for NAUSEA/VOMITING Prescribed by: FRED LUX on 09/19/21 2801 Review of Systems Review of Systems Constitutional: see HPI EENTM: No nose congestion, No throat pain Respiratory: cough; No hemoptysis, No phlegm; short of breath; No stridor, No wheezing Cardiovascular: see HPI Gastrointestinal: abdominal pain (feels like he has muscle tightness causing his pain in abdomen), diarrhea, nausea, vomiting Genitourinary: no symptoms reported Musculoskeletal: see HPI, muscle pain (tightness in muscles, all over but especially in rhomboids in back and abdominal wall muscles) Skin: no symptoms reported Psychiatric/Neurological: Anxiety Hematologic/Lymphatic: Denies Blood Clots Past Byrmein-Tqbnsx-Egcaui Hx Patient Social History Tobacco Use?: Yes Tobacco type used: Cigarettes Smoking Status: Current Everyday Smoker Use of E-Cig and/or Vaping dev: No Substance use?: No Alcohol Use?: No Pt feels they are or have been: No Immunizations Up To Date Second COVID19 Vaccination Albin: May 02 Third COVID19 Vaccination Date: 2021 Seasonal Allergies Seasonal Allergies: No Past Medical History Surgery/Hospitalization HX: thyroidectomy, Graves, DM Surgeries: Yes Thyroidectomy Respiratory: No Cardiac: Yes High Cholesterol, Hypertension Neurological: No Genitourinary: No Gastrointestinal: Yes Gastroesophageal Reflux Musculoskeletal: No Diabetes, Non-Insulin dep HEENT: No Cancer: No Psychosocial: Yes Anxiety, Depression Integumentary: No Blood Disorders: No Physical Exam Vital Signs Vital Signs - First Documented 09/19/21 06:48 Temp 35.9 Pulse 82 Resp 26 B/P (MAP) 145/86 (105) Pulse Ox 98 Capillary Refill : Height, Weight, BMI Height: 6'1.00" Weight: 285lbs. oz. [id number]; 41.00 BMI Method:Stated General Appearance: Anxious, Obese Eyes: Bilateral Eye PERRL, Bilateral Eye EOMI HEENT: PERRL/EOMI, Pharynx Normal, Moist Mucous Membranes Neck: Full Range of Motion, Normal Inspection, Non Tender, Supple Respiratory: Chest Non Tender, Lungs Clear, Normal Breath Sounds, No Accessory Muscle Use, No Respiratory Distress Cardiovascular: Regular Rate, Rhythm, No Murmur, Normal Peripheral Pulses Gastrointestinal: Normal Bowel Sounds, No Pulsatile Mass, Non Tender, Soft Rectal: Deferred Back: No CVA Tenderness Extremity: Normal Capillary Refill, Normal Inspection, No Calf Tenderness, No Pedal Edema Neurologic/Psychiatric: Alert, Oriented x3, wet cleaner machine II-XII Norm as Tested Skin: Normal Color, Warm/Dry Progress/Results/Core Measures Suspected Sepsis SIRS Temperature: Pulse: 82 Respiratory Rate: 26 Laboratory Tests 09/19/21 07:10: White Blood Count 8.7 Blood Pressure 145 /86 Mean: 105 Laboratory Tests 09/19/21 07:10: Creatinine 0.98, Platelet Count 170, Total Bilirubin < 0.2 Results/Orders Lab Results Laboratory Tests Test 09/19/21 06:45 09/19/21 07:10 09/19/21 07:12 Range/Units SARS-CoV-2 RNA (RT-PCR) Not Detected Not Detecte White Blood Count 8.7 4.3-11.0 10^3/uL Red Blood Count 4.44 4.30-5.52 10^6/uL Hemoglobin 13.8 13.3-17.7 g/dL Hematocrit 41 40-54 % Mean Corpuscular Volume 93 80-99 fL Mean Corpuscular Hemoglobin 31 25-34 pg Mean Corpuscular Hemoglobin Concent 33 32-36 g/dL Red Cell Distribution Width 13.3 10.0-14.5 % Platelet Count 170 130-400 10^3/uL Mean Platelet Volume 11.3 9.0-12.2 fL Immature Granulocyte % (Auto) 0 % Neutrophils (%) (Auto) 71 42-75 % Lymphocytes (%) (Auto) 18 12-44 % Monocytes (%) (Auto) 5 0-12 % Eosinophils (%) (Auto) 5 0-10 % Basophils (%) (Auto) 1 0-10 % Neutrophils # (Auto) 6.2 1.8-7.8 10^3/uL Lymphocytes # (Auto) 1.6 1.0-4.0 10^3/uL Monocytes # (Auto) 0.4 0.0-1.0 10^3/uL Eosinophils # (Auto) 0.5 H 0.0-0.3 10^3/uL Basophils # (Auto) 0.1 0.0-0.1 10^3/uL Immature Granulocyte # (Auto) 0.0 0.0-0.1 10^3/uL Sodium Level 137 135-145 MMOL/L Potassium Level 4.6 3.6-5.0 MMOL/L Chloride Level 103 98-107 MMOL/L Carbon Dioxide Level 23 21-32 MMOL/L Anion Gap 11 5-14 MMOL/L Blood Urea Nitrogen 14 7-18 MG/DL Creatinine 0.98 0.60-1.30 MG/DL Estimat Glomerular Filtration Rate 102 BUN/Creatinine Ratio 14 Glucose Level 212 H 70-105 MG/DL Calcium Level 8.5 8.5-10.1 MG/DL Corrected Calcium 8.3 L 8.5-10.1 MG/DL Magnesium Level 1.9 1.6-2.4 MG/DL Total Bilirubin < 0.2 0.1-1.0 MG/DL Aspartate Amino Transf (AST/SGOT) 11 5-34 U/L Alanine Aminotransferase (ALT/SGPT) 18 0-55 U/L Alkaline Phosphatase 73 40-136 U/L Troponin I < 0.30 <0.30 NG/ML C-Reactive Protein < 0.30 <0.50 MG/DL Pro-B-Type Natriuretic Peptide 25.7 <125.0 PG/ML Total Protein 6.8 6.4-8.2 GM/DL Albumin 4.3 3.2-4.5 GM/DL Glucometer 205 H 70-110 MG/DL My Orders Orders - FRED LUX MD Iv 1000 Ml (Sodium Chloride 0.9%) (09/19/21 07:24) Ketorolac Injection (Toradol Injection) (09/19/21 07:24) Ondansetron Injection (Zofran Injectio (09/19/21 07:24) Pantoprazole Injection (Protonix Injecti (09/19/21 07:24) Vital Signs/I&O 09/19/21 09/19/21 06:48 08:40 Temp 35.9 35.9 Pulse 82 75 Resp 26 18 B/P (MAP) 145/86 (105) 150/84 Pulse Ox 98 98 Capillary Refill : Blood Pressure Mean: 105 Point of Care Testing Finger Stick Blood Glucose: 205 Progress Note #1: Progress Note check labs, chest xray, ECG, cardiac enzymes, Covid swab. Give IVF for hydration, Toradol 30 mg IV for muscle tightness, Zofran 4 mg IV for nausea, Protonix 40 mg IV for reflux with nausea. Differential diagnosis includes COVID, pneumonia, dehydration, viral syndrome, UTI, DKA Progress Note #2: Progress Note Electrocardiogram appears stable from prior tracings. Chest x-ray without acute process. Labs show stable CBC without elevated white blood cell count. Chemistry panel has negative troponin and negative CRP. The glucose was 212. COVID swab was negative. Patient reports he was feeling a little bit better after medications. Spent 20 minutes reviewing results and discussing possible reasons for why he has been having recurring symptoms and not feeling well. Will prescribe Zofran so he has something for nausea at home. Encouraged to check with pcp and endocrinology about his symptoms. since he just had Thyroidectomy 3 months ago and they are still adjusting his thyroid dose he may just need more time to get to a steady state on this. ECG Initial ECG Impression Date: Sep 19, 2021 Initial ECG Impression Time: 07:21 Initial ECG Rate: 67 Initial ECG Rhythm: Normal Sinus Initial ECG Comparisson: Unchanged Comment Normal sinus rhythm with a heart rate of 67 bpm. [place] interval [address] elevation. Left axis deviation. Low voltage QRS complexes in precordial leads. QT interval 366 ms with a QTc interval 381 ms. Overall appears similar to prior tracings in the system. Diagnostic Imaging Diagonstic Imaging: Xray Plain Films/CT/US/NM/MRI: chest Comments [facility]. [place], [place] NAME: ELZBIETA KING [facility] REC#: [id number] PT STATUS: REG ER : 1985 PHYSICIAN: GEE MONTANO DO ADMIT DATE: 09/19/21/ER FS Draft Date of Exam:09/19/21 CHEST PA/LAT (2 VIEW) EXAMINATION: Chest 2 view HISTORY: sob COMPARISON: 12/29/2020 FINDINGS: Heart size and pulmonary vasculature are normal. The lungs are clear without consolidation, pleural effusion, or pneumothorax. The osseous structures are intact. IMPRESSION: 1. No acute radiographic abnormality in the chest. Dictated on workstation # [id number] Dict: 09/19/21 0704 Trans: 09/19/21 0705 CV [id number] Interpreted by: LENKA ROMAN DO Electronically signed by: Reviewed: Reviewed by Me Departure Impression Primary Impression: Nausea vomiting and diarrhea Additional Impressions: Cough in adult Muscle tightness General weakness Disposition: 01 HOME, SELF-CARE Condition: Stable Departure-Patient Inst. Decision time for Depature: 08:35 Referrals: LIGIA CRUZ APRN (PCP/Family) Primary Care Physician Patient Instructions: Nausea and Vomiting, Adult ED, Diarrhea, Adult ED, Fatigue ED, Weakness ED Add. Discharge Instructions: Stay well hydrated and drink plenty of fluids Write down your symptoms and concerns that keep recurring for you so you could review them with your primary and the [facility] to see if there is other testing they need to do or if it is a matter of giving some more time for your body to adjust to the Thyroidectomy and getting to the right dose of Thyroid hormone for your body. All discharge instructions reviewed with patient and/or family. Voiced understanding. Scripts Ondansetron (Ondansetron Odt) 4 Mg Tab.rapdis 4 MG PO Q6H PRN for NAUSEA/VOMITING for 5 Days, #20 TAB 0 Refills Prov: FRED LUX MD 09/19/21 Work/School Note: Work Release Form Date Seen in the Emergency Department: Sep 19, 2021 Return to Work: Sep 21, 2021 Restrictions: Return-No Vomiting(24hrs) Other Restrictions Listed Below: He has been sick since September 16, 2021 FRED LUX MD Sep 19, 2021 07:31
[2021-09-19 07:54] LABS: ALKALINE PHOSPHATASE 73 U/L (40-136); BILIRUBIN,TOTAL < 0.2 MG/DL (0.1-1.0); BUN/CREATININE RATIO 14; CALCIUM 8.5 MG/DL (8.5-10.1); CARBON DIOXIDE 23 MMOL/L (21-32); CHLORIDE 103 MMOL/L (98-107); CREATININE SERUM 0.98 MG/DL (0.60-1.30); GFR ESTIMATED 102; GLUCOSE 212 MG/DL (70-105); MAGNESIUM 1.9 MG/DL (1.6-2.4); POTASSIUM 4.6 MMOL/L (3.6-5.0); SODIUM 137 MMOL/L (135-145)
[2021-09-19 07:55] LABS: ALANINE AMINOTRANSFERASE 18 U/L (0-55); ALBUMIN 4.3 GM/DL (3.2-4.5); TOTAL PROTEIN 6.8 GM/DL (6.4-8.2)
[2021-09-19] MEDS ORDERED: ONDA4TAB11 PO (08:35)
[2021-09-19 08:40] VITALS: BP 150/84
== END 2021-09-19 08:40 | disposition home or self-care (01) ==
LOC: EDUNIT# 06:44 → ER FS 06:47
DX: R11.2 Nausea with vomiting, unspecified (principal); R19.7 Diarrhea, unspecified; R53.1 Weakness; R05.1 Acute cough; R07.89 Other chest pain; E66.9 Obesity, unspecified; F17.210 Nicotine dependence, cigarettes, uncomplicated; Z68.41 Body mass index [BMI] 40.0-44.9, adult; Z20.822 Contact with and (suspected) exposure to COVID-19
CPT/HCPCS: 36415; 71046; 80053; 82947; 83735; 83880; 84484; 85025; 86141; 87636; 93005; 93041

== ENCOUNTER 2022-01-24 09:26 | Emergency (ER) | payer OTHER ==
[~2022-01-24 09:26] MED LIST changes: +ONDA4TAB11 PO
--- NOTE | 2022-01-24 09:38 | ED Back Pain ---
General Chief Complaint: Back Problems Stated Complaint: BACK PAIN History of Present Illness Date Seen by Provider: Jan 24, 2022 Time Seen by Provider: 09:37 Initial Comments 36-year-old male with chronic left upper back pain. He reports that during the night he must of flared it. He reports that this happens occasionally where he just gets flares in the last for a while and goes away. He has tried his medications with minimal relief. He presents today because he is requesting a steroid shot. Reports his laceration has been probably 6 months ago and when he has flares it seems to help. He has no known new injury. No numbness tingling bowel or bladder issues. The pain is in the left lateral aspect around the shoulder blade. No other systemic complaints Allergies and Home Medications Allergies Coded Allergies: No Known Drug Allergies (Unverified , 04/04/18) Patient Home Medication List Home Medication List Reviewed: Yes Hydrocodone Bit/Acetaminophen (Lortab 5 Mg Tablet) 1 Tab Tab, 1-2 EACH PO Q6H PRN for PAIN-MODERATE Prescribed by: LENKA HODGSON on 04/04/182040 Ondansetron (Ondansetron Odt) 4 Mg Tab.rapdis, 4 MG PO Q6H PRN for NAUSEA/VOMITING Prescribed by: FRED LUX on 09/19/21 0835 Review of Systems Constitutional: no symptoms reported EENTM: no symptoms reported Respiratory: no symptoms reported Cardiovascular: no symptoms reported Gastrointestinal: no symptoms reported Genitourinary: no symptoms reported Musculoskeletal: see HPI, back pain Skin: no symptoms reported Psychiatric/Neurological: No Symptoms Reported Past Ueintuc-Rkstnc-Djzmoe Hx Patient Social History Tobacco Use?: Yes Tobacco type used: Cigarettes Smoking Status: Current Everyday Smoker Use of E-Cig and/or Vaping dev: No Substance use?: Yes Substance type: Marijuana Substance frequency: Once in a while Alcohol Use?: No Pt feels they are or have been: No Immunizations Up To Date First/Initial COVID19 Vaccinat: 2021 Second COVID19 Vaccination Albin: 2021 Third COVID19 Vaccination Date: 2021 Seasonal Allergies Seasonal Allergies: No Past Medical History Surgery/Hospitalization HX: thyroidectomy, Graves, DM; DDD Surgeries: Yes Thyroidectomy Respiratory: No Cardiac: Yes High Cholesterol, Hypertension Neurological: No Genitourinary: No Gastrointestinal: Yes Gastroesophageal Reflux Musculoskeletal: No Diabetes, Non-Insulin dep HEENT: No Cancer: No Psychosocial: Yes Anxiety, Depression Integumentary: No Blood Disorders: No Physical Exam Vital Signs Vital Signs - First Documented 01/24/22 09:30 Temp 36.0 Pulse 82 Resp 16 B/P (MAP) 136/62 (86) Pulse Ox 96 O2 Delivery Room Air Capillary Refill : Height, Weight, BMI Height: 6'1.00" Weight: 285lbs. oz. 129.026358zt; 41.00 BMI Method:Stated General Appearance: No Apparent Distress, WD/WN HEENT: Normal ENT Inspection Neck: Normal Inspection, Non Tender, Supple Cardiovascular: Regular Rate, Rhythm, No Edema Respiratory: Lungs Clear, Normal Breath Sounds, No Accessory Muscle Use Gastrointestinal: Non Tender, Soft Back: No CVA Tenderness (L), No CVA Tenderness (R), No Vertebral Tenderness; Other (Mild tenderness left upper thoracic paraspinal region/lateral asked) Extremity: Normal Capillary Refill, Normal Inspection, Normal Range of Motion Neurologic/Psychiatric: Alert, Oriented x3 Skin: Normal Color, Warm/Dry Progress/Results/Core Measures Results/Orders My Orders Orders - GEE MONTANO DO Dexamethasone Injection (Decadron Inje (01/24/22 09:45) Medications Given in ED Current Medications Medications Dose Ordered Sig/Yenny Route Start Time Stop Time Status Last Admin Dose Admin Dexamethasone Sodium Phosphate 10 mg ONCE ONCE IM 01/24/22 09:45 01/24/22 09:46 DC 01/24/22 09:49 10 MG Vital Signs/I&O 01/24/22 09:30 Temp 36.0 Pulse 82 Resp 16 B/P (MAP) 136/62 (86) Pulse Ox 96 O2 Delivery Room Air Progress Progress Note : Progress Note Discussed with patient side effects and risk of steroid injection. Patient voiced understanding. I will provide him with a 10 mg shot of Decadron. He needs to follow-up with his primary care provider as needed. He is stable and discharged home Departure Impression Primary Impression: Chronic back pain Qualified Codes: M54.6 - Pain in thoracic spine; G89.29 - Other chronic pain Disposition: HOME, SELF-CARE Condition: Stable Departure-Patient Inst. Referrals: LIGIA CRUZ APRN (PCP) Primary Care Physician [facility] (Family) Primary Care Physician Patient Instructions: Back Muscle Strain (DC) Add. Discharge Instructions: 4% topical lidocaine with menthol cream gel or patch use as directed on packaging affected area, Voltaren/diclofenac cream, use as directed on packaging affected area. All discharge instructions reviewed with patient and/or family. Voiced understanding. GEE MONTANO DO Jan 24, 2022 09:38
[2022-01-24 09:58] VITALS: BP 136/62
== END 2022-01-24 09:58 | disposition home or self-care (01) ==
LOC: EDUNIT# 09:26 → ER FS 09:27
DX: M54.6 Pain in thoracic spine (principal); G89.29 Other chronic pain; F17.210 Nicotine dependence, cigarettes, uncomplicated
CPT/HCPCS: 99284

== ENCOUNTER 2022-12-28 23:24 | Emergency (ER) | payer BC ==
[~2022-12-28] VITALS: Ht 185.4 cm; Wt 133.3 kg
[2022-12-28 23:37] VITALS: BP 153/78
[2022-12-28] MEDS ORDERED: ERYTHROMYCIN OPHTH OINT 1 GM (SINGLE USE) TUBE OP STA (23:53)
--- NOTE | 2022-12-28 23:57 | ED EENT ---
History of Present Illness General Stated Complaint: CAT SCRATCH R EYE History of Present Illness Date Seen by Provider: Dec 28, 2022 Time Seen by Provider: 23:43 Initial Comments 37-year-old male is here with complaints of right eye irritation and pain after his pet cat scratched him in the right eye approximately 4 hours ago. Denies blurry vision. Cat is vaccinated. Allergies and Home Medications Allergies Coded Allergies: No Known Drug Allergies (Unverified , 04/04/18) Patient Home Medication List Home Medication List Reviewed: Yes Hydrocodone Bit/Acetaminophen (Lortab 5 Mg Tablet) 1 Tab Tab, 1-2 EACH PO Q6H PRN for PAIN-MODERATE Prescribed by: LENKA HODGSON on 04/04/182040 Ondansetron (Ondansetron Odt) 4 Mg Tab.rapdis, 4 MG PO Q6H PRN for NAUSEA /VOMITING Prescribed by: FRED LUX on 09/19/21 0835 Review of Systems Review of Systems Constitutional: no symptoms reported Eyes: Pain, Photophobia Past Ygxqgys-Osuzer-Itaamo Hx Immunizations Up To Date First/Initial COVID19 Vaccinat: 2021 Second COVID19 Vaccination Albin: 2021 Third COVID19 Vaccination Date: 2021 Seasonal Allergies Seasonal Allergies: No Past Medical History Surgery/Hospitalization HX: thyroidectomy, Graves, DM; DDD Surgeries: Yes Thyroidectomy Respiratory: No Cardiac: Yes High Cholesterol, Hypertension Neurological: No Genitourinary: No Gastrointestinal: Yes Gastroesophageal Reflux Musculoskeletal: No Diabetes, Non-Insulin dep HEENT: No Cancer: No Psychosocial: Yes Anxiety, Depression Integumentary: No Blood Disorders: No Physical Exam Height, Weight, BMI Height: 6'1.00" Weight: 285lbs. oz. 129.369719uk; 41.00 BMI Method:Stated General Appearance: WD/WN, mild distress Eyes: right eye PERRL, right eye EOMI, right eye conjunctival inflammation, right eye corneal abrasion (Possibility of corneal abrasion however we do not have tetracaine in the ER to be able to do a fluorescein test) Neurologic/Psychiatric: alert, oriented x 3 Skin: normal color Progress/Results/Core Measures Results/Orders My Orders Orders - MARLI DESAI MD Tetracaine 0.5% Ophth Dulce Sdv (Tetracai (12/29/22 00:00) Fluorescein Ophthalmic Strips (Fluoresce (12/29/22 00:00) Progress Progress Note : Progress Note 1. RIGHT CONJUNCTIVA ABRASION/ POSSIBLE CORNEAL ABRASION: -We do not have tetracaine in the ER to do fluorescein testing at this time. I have given the option to the patient for us to earring maker the tetracaine from [place] to test for corneal abrasion, however the patient is refusing to wait. So I will give him a sent home pack of erythromycin ophthalmic ointment for his eye and also a prescription for it. Ibuprofen 600 mg given in the ER as well. -Advised patient to see an global logistics analyst in the morning for follow-up. -Advised ibuprofen as needed for pain Departure Impression Primary Impression: Abrasion of conjunctiva, right Additional Impression: Corneal abrasion, right Disposition: 01 HOME, SELF-CARE Condition: Stable Departure-Patient Inst. Referrals: LIGIA CRUZ APRN (PCP) Primary Care Physician [facility] (Family) Primary Care Physician Patient Instructions: How to Use Eye Ointment, Corneal Abrasion ED Add. Discharge Instructions: -Advised patient to see an global logistics analyst in the morning for follow-up. -Advised ibuprofen as needed for pain - Prescription for Erythromycin Ophthalmic ointment to be applied Q4H to right eye Scripts Erythromycin Base (Erythromycin Opthalmic Ointment) 5 Mg/Gram (0.5 %) Oint...g. 0 OP Q4H for 7 Days, #1 EA 1/2 inch Prov: MARLI DESAI MD 12/29/22 MARLI DESAI MD Dec 28, 2022 23:57
[2022-12-29] MEDS ORDERED: TETRACAINE 0.5% OPHTH SOLN 4 ML BTL (SINGLE DOSE ONLY) OP ONE
[2022-12-29] MEDS ORDERED: FLUORESCEIN 1 MG OPHTHALMIC STRIPS OP ONE
[2022-12-29] MEDS ORDERED: ERYT1OIN6 OP (00:07)
[2022-12-29] MEDS ORDERED: IBUPROFEN 600 MG TABLET PO ONE (00:15)
== END 2022-12-29 00:20 | disposition home or self-care (01) ==
LOC: EDUNIT# 23:24 → ER FS 23:27
DX: S05.01XA Injury of conjunctiva and corneal abrasion without foreign body, right eye, initial encounter (principal); W55.03XA Scratched by cat, initial encounter
CPT/HCPCS: 99283